=== PATIENT | male | born 1980 | race Caucasian/White ===

== ENCOUNTER 2022-08-05 16:10 | Emergency (ER) | payer SELFPAY ==
[~2022-08-05] VITALS: Ht 165.1 cm; Wt 74.8 kg
== END 2022-08-05 18:03 | disposition left against medical advice (07) ==
LOC: ER 16:10
DX: K08.89 Other specified disorders of teeth and supporting structures (principal); Z53.21 Procedure and treatment not carried out due to patient leaving prior to being seen by health care provider
CPT/HCPCS: 99282

== ENCOUNTER 2022-10-07 16:34 | Inpatient (IN) | payer OTHER ==
[~2022-10-07] VITALS: Ht 165.1 cm; Wt 72.7 kg
[2022-10-07 17:42] LABS: BASOPHILS ABSOLUTE AUTO 0.09 K/mm3 (0.00-0.23); BASOPHILS PERCENT AUTO 1 % (0-2); EOSINOPHILS ABSOLUTE AUTO 0.05 K/mm3 (0.00-0.68); EOSINOPHILS PERCENT AUTO 0 % (0-6); Hematocrit 50.5 % (37.0-53.0); Hemoglobin 17.7 g/dL (13.5-17.5); IMMATURE GRAN ABSOLUTE AUTO 0.07 K/mm3 (0.00-0.10); IMMATURE GRAN PERCENT AUTO 0 % (0-1); LYMPHOCYTES ABSOLUTE AUTO 2.21 K/mm3 (0.84-5.20); LYMPHOCYTES PERCENT AUTO 11 % (21-46); MONOCYTES PERCENT AUTO 5 % (4-13); Mean Corpuscular HGB 30.1 pg (26.0-34.0); Mean Corpuscular Volume 86 fL (80-100); Mean Platelet Volume 10.2 fL (9.1-12.4); NEUTROPHILS ABSOLUTE AUTO 16.47 K/mm3 (1.96-9.15); NEUTROPHILS PERCENT AUTO 83 % (41-73); Platelet Count 326 K/mm3 (150-400); RDW Coefficient Variation 11.6 % (11.7-14.2); RDW Standard Deviation 36.7 fL (35.1-46.3); Red Blood Cell Count 5.88 M/mm3 (4.30-5.90); White Blood Cell Count 19.89 K/mm3 (4.00-11.30)
[2022-10-07 18:13] LABS: Albumin/Globulin Ratio 0.9 (0.8-1.8); Bilirubin, Total 0.8 mg/dL (0.1-1.0); Bun/Creatinine Ratio 18.3 (12.0-20.0); Calcium, Blood 9.4 mg/dL (8.5-10.1); Creatinine, Blood 0.93 mg/dL (0.60-1.20); Globulin, Blood 4.4 g/dL (2.2-4.0); Potassium, Blood 4.1 mmol/L (3.5-5.5); Total Protein, Blood 8.4 g/dL (6.4-8.2)
[2022-10-07 19:54] LABS: Source, Urine Clean Catch
[2022-10-07 19:58] LABS: Influenza A, PCR NEGATIVE (NEGATIVE); Influenza B, PCR NEGATIVE (NEGATIVE); Resp Syncytial Virus, PCR NEGATIVE (NEGATIVE); SARS-Cov-2 (COVID-19) PCR, MMC NEGATIVE (NEGATIVE)
[2022-10-07 20:01] LABS: Bilirubin, Urine Neg (Neg); Blood, Urine 3+ (Neg); Glucose Qualitative, Urine Neg (Neg); Ketones, Urine 2+ (Neg); Leukocyte Esterase, Urine 2+ (Neg); Nitrite, Urine Neg (Neg); Protein, Urine 2+ (Neg); Specific Gravity, Urine 1.025 (1.003-1.022); Urobilinogen, Urine NORM (Normal)
[2022-10-07 20:16] LABS: Appearance, Urine Clear (Clear); Color, Urine Yellow (P-Yellow)
[2022-10-07 20:20] LABS: U Amphetamine Screen DETECTED; U Methamphetamine Screen DETECTED
[2022-10-07 20:22] LABS: U Barbituate Screen Not Detected; U Benzodiazapine Screen Not Detected; U Buprenorphine Screen Not Detected; U Cannabinoids Screen DETECTED; U Cocaine Screen Not Detected; U Methadone Screen DETECTED; U Opiates Screen Not Detected; U Oxycodone Screen Not Detected; U Phencyclidine Screen Not Detected; U Propoxyphene Screen Not Detected
[2022-10-07 20:24] LABS: Amorphous Light (0-Heavy); Bacteria Few /hpf; Mucus Mod (0-Heavy); Red Blood Cells, Urine 0-2 /hpf (0-2); Squamous Epithelial Cells Not Seen /hpf (Few)
[2022-10-07 23:30] VITALS: BP 187/113
[2022-10-08] VITALS (30 sets, daily range): BP systolic 127–200; BP diastolic 71–120
[2022-10-08 03:54] LABS: BASOPHILS ABSOLUTE AUTO 0.06 K/mm3 (0.00-0.23); BASOPHILS PERCENT AUTO 0 % (0-2); EOSINOPHILS ABSOLUTE AUTO 0.03 K/mm3 (0.00-0.68); EOSINOPHILS PERCENT AUTO 0 % (0-6); Hematocrit 46.6 % (37.0-53.0); Hemoglobin 16.4 g/dL (13.5-17.5); IMMATURE GRAN ABSOLUTE AUTO 0.03 K/mm3 (0.00-0.10); IMMATURE GRAN PERCENT AUTO 0 % (0-1); LYMPHOCYTES ABSOLUTE AUTO 2.91 K/mm3 (0.84-5.20); LYMPHOCYTES PERCENT AUTO 21 % (21-46); MONOCYTES ABSOLUTE AUTO 1.27 K/mm3 (0.16-1.47); MONOCYTES PERCENT AUTO 9 % (4-13); Mean Corpuscular HGB 30.3 pg (26.0-34.0); Mean Corpuscular HGB Conc 35.2 g/dL (31.5-36.5); Mean Corpuscular Volume 86 fL (80-100); Mean Platelet Volume 10.2 fL (9.1-12.4); NEUTROPHILS ABSOLUTE AUTO 9.63 K/mm3 (1.96-9.15); NEUTROPHILS PERCENT AUTO 69 % (41-73); Platelet Count 261 K/mm3 (150-400); RDW Coefficient Variation 11.8 % (11.7-14.2); RDW Standard Deviation 37.3 fL (35.1-46.3); Red Blood Cell Count 5.42 M/mm3 (4.30-5.90); White Blood Cell Count 13.93 K/mm3 (4.00-11.30)
[2022-10-08 04:13] LABS: CHOL/HDL RATIO 4.8; Cholesterol 160 mg/dL (50-200); HDL Cholesterol 33 mg/dL (>39); LDL/HDL RATIO 3.2; Low Density Lipoprotein Chol 107 mg/dL (0-110); Triglycerides 101 mg/dL (30-160); Very Low Density Lipoprot Chol 20 mg/dL (6-32)
--- NOTE | 2022-10-08 06:35 | NUR ---
SHIFT SUMMARY ASSUMED CARE OF PATIENT FROM ED. UPON ARRIVAL, PATIENT LETHARGIC. AWAKENS TO VOICE, BUT FALLS ASLEEP WITHIN SECONDS. ORIENTED X3. [place]. FOLLOWS COMMANDS. RIGHT FACIAL DROOP NOTED. OTHERWISE, PATIENT APPEARS TO BE GLOBALLY WEAK. PASTRY ASSISTANT/PUSHES/PULLS EQUAL AND WEAK. MODERATE STRENGTH. PERRL. PATIENT REPORTS SENSATION INTACT TO ALL 4 EXTREMITIES. THIS MORNING, PATIENT MORE ALERT AND ABLE TO HOLD CONVERSATION WITHOUT STIMULI. PER HOSPITALIST, GOAL SBP LESS THAN 200. OVRENIGHT, SBP 140-180S WITHOUT INTERVENTION. MONITOR SHOWING SINUS RHYTHM. PLAN FOR ECHO TODAY. NPO. VOIDING WITHOUT DIFFICULTY. CALL LIGHT WITHIN REACH. CARES ONGOING.
--- NOTE | 2022-10-08 07:27 | NUR ---
Assumed care at 0700. Report received from nightshift RN. Pt sleeping in bed, on room air. NS infusing at 150 ml/hr. VS stable, continue to monitor.
--- NOTE | 2022-10-08 18:07 | NUR ---
Shift summary. Pt rested in bed for most of the shift. Up with physical therapy and to the commode. Pt ambulates well with walker, slight right sided deficits noted in gait. ECHO and carotid duplex completed, see chart. Pt changed to MED w/tele this afternoon. See shift assessment for further details. Will continue to monitor and report off to svetlana AMBRIZ.
[2022-10-09 00:52] VITALS: BP 170/122
[2022-10-09 03:46] LABS: Hematocrit 48.2 % (37.0-53.0); Hemoglobin 16.9 g/dL (13.5-17.5); Mean Corpuscular HGB 30.5 pg (26.0-34.0); Mean Corpuscular HGB Conc 35.1 g/dL (31.5-36.5); Mean Corpuscular Volume 87 fL (80-100); Mean Platelet Volume 10.5 fL (9.1-12.4); Platelet Count 280 K/mm3 (150-400); RDW Coefficient Variation 11.7 % (11.7-14.2); RDW Standard Deviation 37.6 fL (35.1-46.3); Red Blood Cell Count 5.55 M/mm3 (4.30-5.90); White Blood Cell Count 10.07 K/mm3 (4.00-11.30)
[2022-10-09 04:00] VITALS: BP 178/113
[2022-10-09 04:04] LABS: Albumin, Blood 3.5 g/dL (3.4-5.0); Anion Gap 5 mmol/L (6-16); Blood Urea Nitrogen 14 mg/dL (8-24); Bun/Creatinine Ratio 16.7 (12.0-20.0); CO2, Blood 26 mmol/L (21-32); Calcium, Blood 9.2 mg/dL (8.5-10.1); Chloride, Blood 107 mmol/L (98-108); Creatinine, Blood 0.84 mg/dL (0.60-1.20); Glomerular Filtration Rate 111 (60-); Glucose, Blood 103 mg/dL (70-99); Phosphorus, Blood 2.7 mg/dL (2.5-4.9); Potassium, Blood 4.1 mmol/L (3.5-5.5); Sodium, Blood 138 mmol/L (136-145)
--- NOTE | 2022-10-09 06:02 | NUR ---
PT A0X4. RIGHT FACIAL DROOP. RUE AND RLE WEAKNESS. NSR AND HYPERTENSIVE OVERNIGHT. ROOM AIR.
[2022-10-09 08:00] VITALS: BP 193/112
[2022-10-09 12:02] VITALS: BP 153/102
[2022-10-09] MEDS ORDERED: AMLO5 PO (13:16)
[2022-10-09] MEDS ORDERED: ASPI81CH PO (13:17)
[2022-10-09] MEDS ORDERED: ATOR40TA PO (13:20)
[2022-10-09] MEDS ORDERED: LOSA50 PO (13:21)
--- NOTE | 2022-10-09 14:10 | NUR ---
Patient discharged at 1405. Pt verbalized understanding of discharge instructions and follow up appointment. All personal belongings sent home with patient. Pt walked out of unit with spouse.
== END 2022-10-09 14:00 | disposition home or self-care (01) | DRG 64 ==
LOC: ER 16:34 → PCU 21:26 → ICUW 23:23
PROVIDERS: Emergency Medicine; Internal Medicine; Nurse Practitioner Acute Care; Physician Assistant; ADMIT Internal Medicine
DX: I63.81 Other cerebral infarction due to occlusion or stenosis of small artery (principal); G92.8 Other toxic encephalopathy; G81.91 Hemiplegia, unspecified affecting right dominant side; N39.0 Urinary tract infection, site not specified; F15.10 Other stimulant abuse, uncomplicated; I10 Essential (primary) hypertension; E78.5 Hyperlipidemia, unspecified; F12.10 Cannabis abuse, uncomplicated; F11.10 Opioid abuse, uncomplicated; I07.1 Rheumatic tricuspid insufficiency; F17.210 Nicotine dependence, cigarettes, uncomplicated; Z20.822 Contact with and (suspected) exposure to COVID-19; D72.829 Elevated white blood cell count, unspecified; Z91.148 Patient's other noncompliance with medication regimen for other reason
CPT/HCPCS: 0241U; 36415; 70450; 70551; 71045; 80053; 80061; 80069; 81001; 82140; 82947; 83036; 83605; 83690; 84443; 85025; 85027; 87086; 93005; 93010; 93306; 93880; 96361; 96365; 96375; 96376; 97112; 97116; 97162; 97165; 99285-25; A9270; J0360; J0696; J1650; J1790; J7030; J7120

== ENCOUNTER 2023-06-20 08:20 | Emergency (ER) | payer OTHER ==
[~2023-06-20] VITALS: Ht 165.1 cm; Wt 72.6 kg
[~2023-06-20 08:20] MED LIST: AMLO5 PO; ASPI81CH PO; ATOR40TA PO; LOSA50 PO
[2023-06-20 08:33] VITALS: BP 157/117
[2023-06-20] MEDS ORDERED: CEPH500 PO (08:46)
[2023-06-20] MEDS ORDERED: Bactrim Ds Tab1 EACH PO (08:46)
== END 2023-06-20 08:51 | disposition home or self-care (01) ==
LOC: ER 08:20
DX: L03.115 Cellulitis of right lower limb (principal); F17.210 Nicotine dependence, cigarettes, uncomplicated; Z86.14 Personal history of Methicillin resistant Staphylococcus aureus infection; Z79.899 Other long term (current) drug therapy
CPT/HCPCS: 99283